=== PATIENT | female | born 1965 | race Two or more races ===

== ENCOUNTER → 2017-06-21 | Outpatient (CLI) | payer OTHER ==
[~2017-06-21] VITALS: Ht 167.6 cm; Wt 93.4 kg
[~2017-06-21] MED LIST: CYMBALTA60 MG PO; DESYREL 150 MG150 MG PO; FISH OIL 1,0001 EAC7 PO; HYGROTON25 MG PO; MILLTRIUM SENI1 EACH PO; NORVASC5 MG PO; RISPERDAL1 MG PO; VITAMIN C100 MG PO
== END | disposition home or self-care (01) ==
LOC: AMB 07:30
DX: Z12.11 Encounter for screening for malignant neoplasm of colon (principal); D12.3 Benign neoplasm of transverse colon; K62.1 Rectal polyp; K64.8 Other hemorrhoids; I10 Essential (primary) hypertension; F51.04 Psychophysiologic insomnia; G89.29 Other chronic pain; Z87.898 Personal history of other specified conditions; Z91.5 Personal history of self-harm; E78.5 Hyperlipidemia, unspecified; E66.9 Obesity, unspecified; Z68.32 Body mass index [BMI] 32.0-32.9, adult; Z82.49 Family history of ischemic heart disease and other diseases of the circulatory system; Z80.8 Family history of malignant neoplasm of other organs or systems; Z83.49 Family history of other endocrine, nutritional and metabolic diseases; Z81.1 Family history of alcohol abuse and dependence
CPT/HCPCS: 88305